=== PATIENT | male | born 1945 | race Caucasian/White ===

== ENCOUNTER 2018-02-24 14:01 | Outpatient (CLI) | payer MEDICARE ==
[~2018-02-24 14:01] MED LIST: Iopamidol 370 76% 100 ML VIAL ONE
--- NOTE | 2018-02-24 15:34 | CT ---
ABDOMEN CT WITH AND WITHOUT CONTRAST: HISTORY: Hepatocellular carcinoma, that spontaneously resolved with evidence of cholestasis. Elevated LFTs. Possible recurrence of tumor versus sclerosis. COMPARISON: CT abdomen and pelvis 01/29/16, 01/30/2016; abdomen MRI 04/17/15, 05/21/16. TECHNIQUE: An abdomen and pelvic CT are performed with and without contrast. Coronal reformatted images are sub mitted for interpretation. FINDINGS: Dependent atelectatic changes in the lung bases. Heart size is normal. No significant pericardial fluid. The visualized aorta demonstrates atheroscl erosis. No periaortic fat stranding. No retroperitoneal mass, lymphadenopathy, or hematoma. No gastrohepatic, retrocrural, or periportal lymphadenopathy. Evidence of previous ventral abdominal wall hernia repair. No evidence of bowel obstruction. Ileoce marshall junction is normal. Normal air-filled appendix. Stable hypodensity emanating from the upper pole left kidney, compatible with a cyst. Bilaterally, n o obstructive uropathy. Symmetric enhancement of the kidneys. The spleen, pancreas, and adrenal glands have appropriate enhancement. Previously noted mass in the medial aspect of the right hepatic lobe is not seen. On the noncontrast study, there is an ill-defined hypodensity in the right hepatic lobe, measuring 1 cm. This hypodens ity is only appreciated on the noncontrast sequence. There is a 3.0 cm hypodensity in the left hepati c lobe, which has minimal peripheral enhancement on the postcontrast sequence. This lesion appears to have developed since the prior exam. On the postcontrast arterial phase images, there is an area of blush-like enhancement involving the p osterior segment of the right hepatic lobe measuring 0.6 cm. There is a corresponding blush of enhan cement on the portal venous phase. IMPRESSION: 1. Resolution of previously noted enhancing mass in the medial aspect of the right hepatic lobe. 2. Blush-like enhancement involving a focus of the right hepatic lobe as described above. This area of blush-like enhancement was not appreciated previously. Small vascular malignant lesion cannot be excluded. 3. Ill-defined hypodensity in the lateral aspect of the right hepatic lobe only appreciated on the n oncontrast sequence. A second lesion is in the left hepatic lobe with predominantly central hypoatten uation. New lesion is worrisome for malignancy. Better interrogation with abdomen MRI is recommended . POS: [facility]
== END 2018-02-24 14:02 | disposition home or self-care (01) ==
LOC: NAV CT 14:01
PROVIDERS: ATTEND Family Medicine
DX: C22.0 Liver cell carcinoma (principal)
CPT/HCPCS: 74170

== ENCOUNTER 2018-10-09 14:09 | Emergency (ER) | payer MEDICARE ==
[2018-10-09] MEDS ORDERED: methylPREDNISolone Sod Succ/PF 125 MG/2 ML VIAL ONE (14:32)
[2018-10-09 14:50] LABS: #Basophils 0.1 thou/uL (0.0-0.2); #Eosinphils 0.1 thou/uL (0.0-0.7); #Neutrophils 6.8 thou/uL (1.40-6.50); %Eosinophils 1.2 % (0.0-10.0); %Lymphocytes 11.2 % (21.0-51.0); %Monocytes 10.7 % (0.0-10.0); Hemoglobin 13.8 g/dL (14.0-18.0); Mean Corpuscular HGB CONC 33.1 g/dL (32.0-36.0); Mean Corpuscular Volume 96.7 fL (78.0-98.0); Mean Platelet Volume 8.9 fL (7.4-10.4); Platelet Count 188 thou/uL (130-400); RBC Distribution Width 11.7 % (11.5-14.5); Red Blood Cell (RBC) Count 4.33 mill/uL (4.70-6.10)
[2018-10-09 15:01] LABS: ALT (SGPT) 59 U/L (8-55); AST (SGOT) 76 U/L (5-34); Albumin 3.9 g/dL (3.4-4.8); Alkaline Phosphatase 118 U/L (40-150); Anion Gap 15 mmol/L (10-20); BUN (Urea Nitrogen) 14 mg/dL (8.4-25.7); Bilirubin, Total 0.5 mg/dL (0.2-1.2); Calc. Creatinine Clearance 0 mL/min (70-130); Calcium 9.5 mg/dL (7.8-10.44); Carbon Dioxide 24 mmol/L (23-31); Chloride 101 mmol/L (98-107); Estimated GFR-MDRD Greater than 90; Glucose 113 mg/dL (83-110); Potassium 4.2 mmol/L (3.5-5.1); Protein, Total 7.9 g/dL (5.8-8.1); Sodium 136 mmol/L (136-145)
--- NOTE | 2018-10-09 15:35 | RAD ---
CHEST 2 VIEWS: HISTORY: Chest pain and dyspnea. COMPARISON: Radiograph 05/30/2015. FINDINGS: There is mild interstitial prominence throughout the lungs, new from the comparison examination. Rob cification granuloma in the left mid lung. Heart size is mildly enlarged. No acute osseous abnormality. IMPRESSION: Mild pulmonary edema. POS: [facility]
== END 2018-10-09 15:55 | disposition home or self-care (01) ==
LOC: NAV ERS 14:09
DX: J44.1 Chronic obstructive pulmonary disease with (acute) exacerbation (principal); D51.9 Vitamin B12 deficiency anemia, unspecified; J45.909 Unspecified asthma, uncomplicated; F41.9 Anxiety disorder, unspecified; I10 Essential (primary) hypertension; F32.9 Major depressive disorder, single episode, unspecified; F17.210 Nicotine dependence, cigarettes, uncomplicated; Z79.899 Other long term (current) drug therapy; Z79.51 Long term (current) use of inhaled steroids
CPT/HCPCS: 71046; 80053; 83880; 84484; 85025; 93005; 94640; 96374; J2930; J7620